=== PATIENT | male | born 1955 ===

== ENCOUNTER → 2022-10-13 | Outpatient (CLI) | payer MEDICARE ==
[~2022-10-13] VITALS: Ht 182.9 cm; Wt 118.8 kg
[~2022-10-13] MED LIST: AMLO-257 PO; ATOR20TA PO; CARV6 PO; CLON0.1T2 PO; FURO20 PO; HYDR25TA2 PO; METF-1185 PO
[2022-10-13 13:01] VITALS: BP 150/96; PULSE 61; RESP 22; O2SAT 99
== END | disposition home or self-care (01) ==
LOC: SRCNTR 11:59
PROVIDERS: ATTEND Internal Medicine Pulmonary Disease
DX: G47.33 Obstructive sleep apnea (adult) (pediatric) (principal); I10 Essential (primary) hypertension; E11.9 Type 2 diabetes mellitus without complications; E55.9 Vitamin D deficiency, unspecified
CPT/HCPCS: G0463; Z7500

== ENCOUNTER → 2022-11-30 | Outpatient (CLI) | payer MEDICARE ==
[~2022-11-30] VITALS: Ht 182.9 cm; Wt 117.5 kg
[2022-11-30 10:03] VITALS: BP 138/81; PULSE 60; RESP 19; TEMP 98.1; O2SAT 99
== END | disposition home or self-care (01) ==
LOC: SRCNTR 09:56
PROVIDERS: ATTEND Internal Medicine Pulmonary Disease
DX: G47.33 Obstructive sleep apnea (adult) (pediatric) (principal); I10 Essential (primary) hypertension; E66.9 Obesity, unspecified; E11.9 Type 2 diabetes mellitus without complications; Z79.899 Other long term (current) drug therapy; Z82.49 Family history of ischemic heart disease and other diseases of the circulatory system
CPT/HCPCS: G0463; Z7500